=== PATIENT | male | born 1995 | race Caucasian/White ===

== ENCOUNTER 2016-05-21 14:50 | Inpatient (IN) | payer MEDICAID, OTHER ==
[~2016-05-21] VITALS: Ht 177.8 cm; Wt 80.7 kg
[~2016-05-21 14:50] MED LIST: DENIES MEDS
[2016-05-21] MEDS ORDERED: SOD CHLORIDE 0.9% 1,000 ML IV ONE ×3 (15:30→17:30)
[2016-05-21 15:44] LABS: ADD SCAN DIFF NO
[2016-05-21 15:48] LABS: BASOPHIL # 0.1 10^3/ul (0.0-0.1); BASOPHILS % 0.5 % (0.0-2.0); EOSINOPHILS # 0.3 10^3/ul (0.0-0.5); EOSINOPHILS % 2.9 % (0.0-7.0); HEMATOCRIT 37.6 % (42.0-52.0); HEMOGLOBIN 12.3 g/dl (14.0-18.0); LYMPHOCYTES # 1.5 10^3/ul (0.8-2.9); LYMPHOCYTES % 15.6 % (15.0-51.0); MEAN CORPUSCULAR HEMOGLOBIN 29.5 pg (29.0-33.0); MEAN CORPUSCULAR HGB CONC 32.7 g/dl (32.0-37.0); MEAN CORPUSCULAR VOLUME 90.2 fl (82.0-101.0); MEAN PLATELET VOLUME 8.4 fl (7.4-10.4); MONOCYTE # 0.7 10^3/ul (0.3-0.9); MONOCYTES % 7.7 % (0.0-11.0); NEUTROPHIL # 6.9 10^3/ul (1.6-7.5); NEUTROPHILS % 72.9 % (39.0-77.0); PLATELET COUNT 462 10^3/UL (140-415); RED BLOOD COUNT 4.17 10^6/ul (4.70-6.10); RED CELL DISTRIBUTION WIDTH 12.9 % (11.5-14.5); WHITE BLOOD COUNT 9.5 10^3/ul (4.8-10.8)
[2016-05-21 16:03] LABS: ALBUMIN 3.8 g/dl (3.3-4.9)
[2016-05-21 16:04] LABS: POTASSIUM 4.4 mmol/L (3.5-5.1)
[2016-05-21 16:06] LABS: ALBUMIN/GLOBULIN RATIO 0.82; BILIRUBIN,INDIRECT 0.3 mg/dl (0-1.1); BILIRUBIN,TOTAL 0.3 mg/dl (0.2-1.3); CREATININE 0.61 mg/dl (0.61-1.24); TOTAL PROTEIN 8.4 g/dl (6.1-8.1)
[2016-05-21 16:07] LABS: CALCIUM 9.5 mg/dl (8.4-10.2)
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
--- NOTE | 2016-05-21 16:28 | RADRPT ---
PROCEDURE: XR Chest. CLINICAL INDICATION: Sepsis. Fever. TECHNIQUE: Single frontal view. COMPARISON: None. FINDINGS: There is mild atelectasis at the lung bases. Surgical clips and imtiaz are present in the left mid to lower lung zone. The lungs are otherwise clear. The heart size is normal. There is no pleural effusion. There is no pneumothorax. IMPRESSION: 1. Mild atelectasis at the lung bases. 2. Prior left lung surgery. 3. Otherwise normal chest x-ray. RPTAT: QQ .Erick Nieto MD, MD Date Time Electronically viewed and signed by .Erick Nieto MD, MD on 05/21/2016 16:27 .R/
--- NOTE | 2016-05-21 17:02 | RADRPT ---
PROCEDURE: US Lower extremity Venous. CLINICAL INDICATION: Left leg swelling TECHNIQUE: Multiple sonographic images of the left lower extremity deep venous system was obtained utilizing grayscale, color-flow, compressive sonography and doppler imaging with augmentation. The images were reviewed on a PACS workstation. COMPARISON: None. FINDINGS: There is normal compressibility and flow within the left common femoral, superficial femoral, petrophysical engineer ior tibial, peroneal and popliteal veins. RPTAT: AA IMPRESSION: No sonographic evidence for deep venous thrombosis. .León Asencio MD, MD Date Time Electronically viewed and signed by .León Asencio MD, on 05/21/2016 17:01 .S/
[2016-05-21] MEDS ORDERED: CEFTRIAXONE 2 GM INJ IM ONE (17:30)
[2016-05-21] MEDS ORDERED: ACETAMINOPHEN 500 MG TAB PO STA (17:30)
[2016-05-21 17:34] LABS: ADD UMIC YES; URINE BILIRUBIN (Dip) NEGATIVE (NEGATIVE); URINE BLOOD (Dip) 2+ (NEGATIVE); URINE COLOR LT. YELLOW (YELLOW); URINE GLUCOSE (Dip) NEGATIVE (NEGATIVE); URINE KETONES (Dip) NEGATIVE (NEGATIVE); URINE LEUKOCYTE ESTERASE (Dip) 3+ (NEGATIVE); URINE NITRITE (Dip) POSITIVE (NEGATIVE); URINE TOTAL PROTEIN (Dip) 1+ (NEGATIVE); URINE UROBILINOGEN (Dip) 1.0 E.U./dL (0.1-1.0)
[2016-05-21 17:58] LABS: BACTERIA,URINE MODERATE
[2016-05-21] MEDS ORDERED: CEFTRIAXONE 2 GM/50 ML (PMX) 50 ML IVPB ONE (18:00)
--- NOTE | 2016-05-21 18:25 | RADRPT ---
PROCEDURE: AP and lateral views of the left femur. CLINICAL INDICATION: Swelling. TECHNIQUE: AP and cross-table lateral views of the left femur were performed. COMPARISON: No. FINDINGS: There is a soft tissue calcification medial to the mid and distal diaphysis of the left femur. No a cute fractures identified. No joint space effusion is noted. IMPRESSION: 1. Findings suspicious for myositis ossificans. This may be the result of earlier trauma/14 injury . Clinical correlation is needed for confirmation. RPTAT:AAJJ Physician Becky Date Time Electronically viewed and signed by Physician Becky on 05/21/2016 18:25 /
[2016-05-21 19:46] VITALS: TEMP 99.7
[2016-05-21] MEDS ORDERED: ACETAMINOPHEN 325 MG TAB PO PRN (20:00)
[2016-05-21] MEDS ORDERED: ONDANSETRON 4 MG INJ IV PRN (20:00)
[2016-05-21 20:48] LABS: BARBITURATES Negative (NEGATIVE); BENZODIAZEPINES Negative (NEGATIVE); CANNABINOIDS Negative (NEGATIVE); COCAINE Negative (NEGATIVE); OPIATES Negative (NEGATIVE)
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
[2016-05-21 21:20] VITALS: BP 117/68; PULSE 95; RESP 20
[2016-05-21] MEDS ORDERED: ONDANSETRON 4 MG TAB PO PRN (21:30)
[2016-05-21] MEDS ORDERED: NACL 0.9% 3 ML SYG IV SCH (21:30)
[2016-05-21] MEDS ORDERED: METOCLOPRAMIDE 10 MG INJ IV PRN (21:30)
[2016-05-21] MEDS ORDERED: HYDROCODONE/APAP (5/325) TAB PO PRN ×2 (21:30)
[2016-05-21 22:07] VITALS: Ht 177.8 cm; Wt 80.7 kg
[2016-05-21] MEDS: ACETAMINOPHEN 325 MG TAB PO PRN (22:19)
[2016-05-21] MEDS: FAMOTIDINE 20 MG TAB PO SCH (22:19)
[2016-05-22] MEDS ORDERED: ACETAMINOPHEN 500 MG TAB PO ONE (02:33)
[2016-05-22 06:24] LABS: ADD SCAN DIFF NO
[2016-05-22 06:40] LABS: CREATININE 0.74 mg/dl (0.61-1.24)
[2016-05-22 06:41] LABS: CALCIUM 8.8 mg/dl (8.4-10.2)
[2016-05-22 07:21] LABS: BASOPHILS % 0.5 % (0.0-2.0); EOSINOPHILS # 0.1 10^3/ul (0.0-0.5); EOSINOPHILS % 1.2 % (0.0-7.0); HEMATOCRIT 32.1 % (42.0-52.0); HEMOGLOBIN 10.5 g/dl (14.0-18.0); LYMPHOCYTES # 1.7 10^3/ul (0.8-2.9); LYMPHOCYTES % 20.6 % (15.0-51.0); MEAN CORPUSCULAR HEMOGLOBIN 29.1 pg (29.0-33.0); MEAN CORPUSCULAR HGB CONC 32.7 g/dl (32.0-37.0); MEAN CORPUSCULAR VOLUME 88.9 fl (82.0-101.0); MEAN PLATELET VOLUME 8.4 fl (7.4-10.4); MONOCYTE # 0.9 10^3/ul (0.3-0.9); MONOCYTES % 10.5 % (0.0-11.0); NEUTROPHIL # 5.6 10^3/ul (1.6-7.5); NEUTROPHILS % 66.8 % (39.0-77.0); PLATELET COUNT 375 10^3/UL (140-415); RED BLOOD COUNT 3.61 10^6/ul (4.70-6.10); RED CELL DISTRIBUTION WIDTH 12.7 % (11.5-14.5); WHITE BLOOD COUNT 8.4 10^3/ul (4.8-10.8)
[2016-05-22 08:15] VITALS: BP 140/76; RESP 22
[2016-05-22] MEDS: FAMOTIDINE 20 MG TAB PO SCH ×2 (09:36→20:10)
[2016-05-22] MEDS: ENOXAPARIN 40 MG/0.4 ML SYG SC SCH (09:37)
[2016-05-22] MEDS: ACETAMINOPHEN 325 MG TAB PO PRN (09:40)
[2016-05-22] MEDS ORDERED: IBUPROFEN 400 MG TAB PO PRN (12:00)
--- NOTE | 2016-05-22 15:10 | PN ---
Date/Time of Note Date/Time of Note DATE: 05/22/16 TIME: 15:07 Assessment/Plan VTE Prophylaxis VTE Prophylaxis Intervention: SCD's Lines/Catheters IV Catheter Type (from [facility]): [place] [facility] Urinary Cath still in place: No Assessment/Plan Chief Complaint/Hosp Course Assessment/Plan 1) Sepsis, due to UTI with likely culprit being E.coli due to Nitrite POSITIVE on UA Continue Rocephin, IV fluids 2) Urinary tract infection associated with catheterization of urinary tract, unspecified indwelling urinary catheter type, initial encounter Continue IV antibiotics 3) Rhabdomyolysis, indicated by elevated CK without any comparisons, with no recent trauma. Doubtful, but possibility of leftover CK from initial injury, Started patient on IV fluid, follow up CK in a.m. 4) Paraplegia - Up to chair with assist 5) Myositis ossificans - No specific action is needed if the mass is staying the same and it is not painful. May need exploration and excision of the lump, but most llikely, a wait and see approach is likely to be recommended. We will continue monitor patient closely for recommendation management treatment as clinical course Problems: Subjective 24 Hr Interval Summary Free Text/Dictation She complains of having nausea without any vomiting Poor p.o. intake secondary to nausea Complain of having low back pain Exam/Review of Systems Vital Signs Vitals Vital Signs Date Time Temp Pulse Resp B/P Pulse Ox O2 Delivery O2 Flow Rate FiO2 05/22/16 15:07 98.2 05/22/16 08:15 110 22 140/76 95 05/21/16 21:20 Room Air Intake and Output 05/21/16 05/21/16 05/22/16 15:00 23:00 07:00 Intake Total 2000 ml 720 ml Balance 2000 ml 720 ml Exam General: The patient is well-developed, Not in acute distress. HEENT: Atraumatic, normocephalic. The pupils are equal and round . Neck: Supple with full range of motion. Chest: Normal expansion of the thorax during inspiration Lungs: Clear to auscultation bilaterally Heart: Normal S1-S2, Regular rhythm and rate. Abdomen: Soft , nontender, nondistended , bowel sounds are present. Extremities: Lower extremity weakness, no edema no cyanosis Neurologic: Normal mental status,The patient is awake, alert and oriented . Results Result Diagram: 05/22/16 0538 05/22/16 0538 Results 24 hrs Laboratory Tests Test 05/21/16 15:20 05/21/16 17:08 05/22/16 05:38 White Blood Count 9.5 8.4 Red Blood Count 4.17 L 3.61 L Hemoglobin 12.3 L 10.5 L Hematocrit 37.6 L 32.1 L Mean Corpuscular Volume 90.2 88.9 Mean Corpuscular Hemoglobin 29.5 29.1 Mean Corpuscular Hemoglobin Concent 32.7 32.7 Red Cell Distribution Width 12.9 12.7 Platelet Count 462 H 375 Mean Platelet Volume 8.4 8.4 Neutrophils % 72.9 66.8 Lymphocytes % 15.6 20.6 Monocytes % 7.7 10.5 Eosinophils % 2.9 1.2 Basophils % 0.5 0.5 Nucleated Red Blood Cells % 0.0 0.0 Neutrophils # 6.9 5.6 Lymphocytes # 1.5 1.7 Monocytes # 0.7 0.9 Eosinophils # 0.3 0.1 Basophils # 0.1 0.0 Nucleated Red Blood Cells # 0.0 0.0 Sodium Level 140 139 Potassium Level 4.4 4.0 Chloride Level 98 103 Carbon Dioxide Level 29 26 Anion Gap 17 H 14 Blood Urea Nitrogen 18 17 Creatinine 0.61 0.74 Glucose Level 109 99 Lactic Acid Level 2.4 H Calcium Level 9.5 8.8 Total Bilirubin 0.3 Direct Bilirubin 0.00 Indirect Bilirubin 0.3 Aspartate Amino Transf (AST/SGOT) 73 H Alanine Aminotransferase (ALT/SGPT) 24 Alkaline Phosphatase 151 H Creatine Kinase 2532 H 2061 H Creatinine Kinase MB (Mass) 0.44 Total Protein 8.4 H Albumin 3.8 Globulin 4.60 H Albumin/Globulin Ratio 0.82 Urine Color LT. YELLOW Urine Clarity TURBID H Urine pH 6.5 Urine Specific [place] 1.015 Urine Ketones NEGATIVE Urine Nitrite POSITIVE H Urine Bilirubin NEGATIVE Urine Urobilinogen 1.0 E.U./dL Urine Leukocyte Esterase 3+ H Urine Microscopic RBC 2-5 Urine Microscopic WBC >200 Urine Epithelial Cells FEW Urine Bacteria MODERATE Urine Hemoglobin 2+ H Urine Glucose NEGATIVE Urine Total Protein 1+ H Urine Opiates Screen Negative Urine Barbiturates Negative Urine Amphetamines Screen Negative Urine Benzodiazepines Screen Negative Urine Cocaine Screen Negative Urine Cannabinoids Negative Ethyl Alcohol Level < 10.0 Medications Medications Current Medications Ondansetron HCl (Zofran Tab) 4 mg Q6H PRN PO NAUSEA AND/OR VOMITING; Start 05/21 at 21:30 Metoclopramide HCl (Reglan) 10 mg Q6H PRN IV NAUSEA AND/OR VOMITING Last administered on 05/21/16 23:09; Admin Dose 10 MG; Start 05/21/16 at 21:30 Acetaminophen (Tylenol Tab) 650 mg Q6H PRN PO PAIN LEVEL 1-3 OR FEVER Last administered on 05/22/16 09:40; Admin Dose 650 MG; Start 05/21/16 at 21:30 Acetaminophen/ Hydrocodone Bitart ([place] (5/325)) 1 tab Q6H PRN PO MODERATE PAIN LEVEL 4-6; Start 05/21/16 at 21:30 Acetaminophen/ Hydrocodone Bitart ([place] (5/325)) 2 tab Q6H PRN PO SEVERE PAIN LEVEL 7-10; Start 05/21/16 at 21:30 Famotidine (Pepcid) 20 mg Q12 PO Last administered on 05/22/16 09:36; Admin Dose 20 MG; Start 05/21/16 at 21:30 Enoxaparin Sodium 40 mg 40 mg DAILY SC Last administered on 05/22/16 09:37; Admin Dose 40 MG; Start 05/22/16 at 09:00 Ceftriaxone Sodium (Rocephin) 50 ml @ 100 mls/hr Q24H IVPB ; Start 05/22/16 at 18:00 Ibuprofen (Motrin) 400 mg Q6H PRN PO PAIN OR TEMP ABOVE 38C; Start 05/22/16 at 12:00 HAYDE BILLINGSLEY MD May 22, 2016 15:10
[2016-05-22] MEDS: CEFTRIAXONE 2 GM/50 ML (PMX) 50 ML IVPB SCH (17:11)
[2016-05-22] MEDS: SOD CHLORIDE 0.45% 1,000 ML IV SCH (17:11)
[2016-05-22 19:14] VITALS: BP 132/77; RESP 20
[2016-05-22] MEDS: CYCLOBENZAPRINE 10 MG TAB PO SCH (20:10)
[2016-05-23] MEDS: SOD CHLORIDE 0.45% 1,000 ML IV SCH ×4 (01:30→14:17)
[2016-05-23 06:25] LABS: ADD SCAN DIFF NO
[2016-05-23 06:43] LABS: BASOPHIL # 0.1 10^3/ul (0.0-0.1); BASOPHILS % 0.6 % (0.0-2.0); EOSINOPHILS # 0.3 10^3/ul (0.0-0.5); EOSINOPHILS % 3.7 % (0.0-7.0); HEMATOCRIT 32.4 % (42.0-52.0); HEMOGLOBIN 10.7 g/dl (14.0-18.0); LYMPHOCYTES # 1.9 10^3/ul (0.8-2.9); LYMPHOCYTES % 22.1 % (15.0-51.0); MEAN CORPUSCULAR VOLUME 87.8 fl (82.0-101.0); MEAN PLATELET VOLUME 8.6 fl (7.4-10.4); MONOCYTE # 1.1 10^3/ul (0.3-0.9); MONOCYTES % 12.2 % (0.0-11.0); NEUTROPHIL # 5.2 10^3/ul (1.6-7.5); NEUTROPHILS % 60.9 % (39.0-77.0); PLATELET COUNT 340 10^3/UL (140-415); RED BLOOD COUNT 3.69 10^6/ul (4.70-6.10); WHITE BLOOD COUNT 8.6 10^3/ul (4.8-10.8)
[2016-05-23 06:52] LABS: CHLORIDE 102 mmol/L (97-110); POTASSIUM 3.4 mmol/L (3.5-5.1); SODIUM 138 mmol/L (135-144)
[2016-05-23 06:55] LABS: ANION GAP 15 (8-16); BLOOD UREA NITROGEN 17 mg/dl (7-20); CALCIUM 8.6 mg/dl (8.4-10.2); CARBON DIOXIDE 24 mmol/L (21-31); CREATINE KINASE 779 IU/L (23-200); CREATININE 0.53 mg/dl (0.61-1.24); GLUCOSE 100 mg/dl (70-220); MAGNESIUM 1.9 mg/dl (1.7-2.5)
[2016-05-23 07:14] LABS: CK-MB 0.48 ng/ml (0.0-2.4); TROPONIN-I < 0.012 ng/ml (0.00-0.12)
[2016-05-23 07:36] VITALS: BP 113/70; RESP 18
[2016-05-23] MEDS: FAMOTIDINE 20 MG TAB PO SCH ×2 (08:46→22:24)
[2016-05-23] MEDS: CYCLOBENZAPRINE 10 MG TAB PO SCH ×3 (08:46→22:25)
[2016-05-23] MEDS: ENOXAPARIN 40 MG/0.4 ML SYG SC SCH (09:30)
[2016-05-23] MEDS ORDERED: POTASSIUM CHLORIDE (SR) 20 MEQ TAB PO STA (12:42)
--- NOTE | 2016-05-23 12:44 | PN ---
Date/Time of Note Date/Time of Note DATE: 05/23/16 TIME: 12:42 Assessment/Plan VTE Prophylaxis VTE Prophylaxis Intervention: other Lines/Catheters IV Catheter Type (from [facility]): Peripheral IV Urinary Cath still in place: No Assessment/Plan Chief Complaint/Hosp Course Assessment/Plan 1) Sepsis, due to UTI with likely culprit being E.coli due to Nitrite POSITIVE on UA Continue Rocephin, IV fluids 2) Urinary tract infection associated with catheterization of urinary tract, unspecified indwelling urinary catheter type, initial encounter Continue IV antibiotics, negative growth and urine culture 3) Rhabdomyolysis, indicated by elevated CK without any comparisons, with no recent trauma. Doubtful, but possibility of leftover CK from initial injury, Improving, continue IV fluid, follow up CK in a.m. 4) Paraplegia - Up to chair with assist 5) Myositis ossificans - No specific action is needed if the mass is staying the same and it is not painful. May need exploration and excision of the lump, but most llikely, a wait and see approach is likely to be recommended. We will continue monitor patient closely for recommendation management treatment as clinical course Plan to discharge home tomorrow Problems: Subjective 24 Hr Interval Summary Free Text/Dictation Patient denies of any chest pain or shortness of breath Denies any dysuria No nausea vomiting or diarrhea Exam/Review of Systems Vital Signs Vitals Vital Signs Date Time Temp Pulse Resp B/P Pulse Ox O2 Delivery O2 Flow Rate FiO2 05/23/16 07:36 98.3 73 18 113/70 99 05/22/16 20:08 Room Air Intake and Output 05/22/16 05/22/16 05/23/16 15:00 23:00 07:00 Intake Total 770 ml 1170 ml Balance 770 ml 1170 ml Exam General: The patient is well-developed, Not in acute distress. HEENT: Atraumatic, normocephalic. The pupils are equal and round . Neck: Supple with full range of motion. Chest: Normal expansion of the thorax during inspiration Lungs: Clear to auscultation bilaterally Heart: Normal S1-S2, Regular rhythm and rate. Abdomen: Soft , nontender, nondistended , bowel sounds are present. Extremities: Lower extremity are flaccid with decubitus ulcer at the heel left foot, no edema no cyanosis Neurologic: Normal mental status,The patient is awake, alert and oriented . Results Result Diagram: 05/23/16 0544 05/23/16 0544 Results 24 hrs Laboratory Tests Test 05/23/16 05:44 White Blood Count 8.6 Red Blood Count 3.69 L Hemoglobin 10.7 L Hematocrit 32.4 L Mean Corpuscular Volume 87.8 Mean Corpuscular Hemoglobin 29.0 Mean Corpuscular Hemoglobin Concent 33.0 Red Cell Distribution Width 13.0 Platelet Count 340 Mean Platelet Volume 8.6 Neutrophils % 60.9 Lymphocytes % 22.1 Monocytes % 12.2 H Eosinophils % 3.7 Basophils % 0.6 Nucleated Red Blood Cells % 0.0 Neutrophils # 5.2 Lymphocytes # 1.9 Monocytes # 1.1 H Eosinophils # 0.3 Basophils # 0.1 Nucleated Red Blood Cells # 0.0 Sodium Level 138 Potassium Level 3.4 L Chloride Level 102 Carbon Dioxide Level 24 Anion Gap 15 Blood Urea Nitrogen 17 Creatinine 0.53 L Glucose Level 100 Calcium Level 8.6 Magnesium Level 1.9 Creatine Kinase 779 #H Creatine Kinase Index 0.1 Creatinine Kinase MB (Mass) 0.48 Troponin I < 0.012 Medications Medications Current Medications Ondansetron HCl (Zofran Tab) 4 mg Q6H PRN PO NAUSEA AND/OR VOMITING; Start 05/21 at 21:30 Metoclopramide HCl (Reglan) 10 mg Q6H PRN IV NAUSEA AND/OR VOMITING Last administered on 05/21/16 23:09; Admin Dose 10 MG; Start 05/21/16 at 21:30 Acetaminophen (Tylenol Tab) 650 mg Q6H PRN PO PAIN LEVEL 1-3 OR FEVER Last administered on 05/22/16 09:40; Admin Dose 650 MG; Start 05/21/16 at 21:30 Acetaminophen/ Hydrocodone Bitart ([place] (5/325)) 1 tab Q6H PRN PO MODERATE PAIN LEVEL 4-6; Start 05/21/16 at 21:30 Acetaminophen/ Hydrocodone Bitart ([place] (5/325)) 2 tab Q6H PRN PO SEVERE PAIN LEVEL 7-10; Start 05/21/16 at 21:30 Famotidine (Pepcid) 20 mg Q12 PO Last administered on 05/23/16 08:46; Admin Dose 20 MG; Start 05/21/16 at 21:30 Enoxaparin Sodium 40 mg 40 mg DAILY SC Last administered on 05/23/16 09:30; Admin Dose 40 MG; Start 05/22/16 at 09:00 Ceftriaxone Sodium (Rocephin) 50 ml @ 100 mls/hr Q24H IVPB Last administered on 05/22/16 17:11; Admin Dose 100 MLS/HR; Start 05/22/16 at 18:00 Ibuprofen 400 mg 400 mg Q6H PRN PO PAIN OR TEMP ABOVE 38C Last administered on 05/22/16 22:24; Admin Dose 400 MG; Start 05/22/16 at 12:00 Sodium Chloride (1/2 NS) 1,000 ml @ 100 mls/hr Q10H IV Last administered on 03:07; Admin Dose 100 MLS/HR; Start 05/22/16 at 15:30 Cyclobenzaprine HCl (Flexeril) 10 mg TID PO Last administered on 05/23/16 08:46 ; Admin Dose 10 MG; Start 05/22/16 at 21:00 HAYDE BILLINGSLEY MD May 23, 2016 12:44
[2016-05-23] MEDS: CEFTRIAXONE 2 GM/50 ML (PMX) 50 ML IVPB SCH (17:05)
[2016-05-23 20:00] VITALS: BP 120/68; RESP 18
[2016-05-24] MEDS: SOD CHLORIDE 0.45% 1,000 ML IV SCH ×2 (02:20→12:39)
[2016-05-24 07:31] VITALS: BP 115/73; RESP 18
[2016-05-24] MEDS: CYCLOBENZAPRINE 10 MG TAB PO SCH ×2 (09:12→12:39)
[2016-05-24] MEDS: FAMOTIDINE 20 MG TAB PO SCH (09:12)
[2016-05-24] MEDS: ENOXAPARIN 40 MG/0.4 ML SYG SC SCH (09:25)
[2016-05-24 11:28] LABS: ADD SCAN DIFF NO
[2016-05-24 11:34] LABS: BASOPHILS % 0.6 % (0.0-2.0); EOSINOPHILS # 0.2 10^3/ul (0.0-0.5); EOSINOPHILS % 3.1 % (0.0-7.0); HEMATOCRIT 33.6 % (42.0-52.0); HEMOGLOBIN 11.2 g/dl (14.0-18.0); LYMPHOCYTES # 1.6 10^3/ul (0.8-2.9); LYMPHOCYTES % 22.3 % (15.0-51.0); MEAN CORPUSCULAR HEMOGLOBIN 29.7 pg (29.0-33.0); MEAN CORPUSCULAR HGB CONC 33.3 g/dl (32.0-37.0); MEAN CORPUSCULAR VOLUME 89.1 fl (82.0-101.0); MEAN PLATELET VOLUME 8.1 fl (7.4-10.4); MONOCYTE # 0.8 10^3/ul (0.3-0.9); MONOCYTES % 11.6 % (0.0-11.0); NEUTROPHIL # 4.5 10^3/ul (1.6-7.5); NEUTROPHILS % 62.3 % (39.0-77.0); PLATELET COUNT 358 10^3/UL (140-415); RED BLOOD COUNT 3.77 10^6/ul (4.70-6.10); RED CELL DISTRIBUTION WIDTH 13.1 % (11.5-14.5); WHITE BLOOD COUNT 7.1 10^3/ul (4.8-10.8)
[2016-05-24 11:44] LABS: CHLORIDE 105 mmol/L (97-110); POTASSIUM 3.7 mmol/L (3.5-5.1); SODIUM 140 mmol/L (135-144)
[2016-05-24 11:46] LABS: CREATININE 0.69 mg/dl (0.61-1.24)
[2016-05-24 11:47] LABS: ANION GAP 15 (8-16); BLOOD UREA NITROGEN 17 mg/dl (7-20); CARBON DIOXIDE 24 mmol/L (21-31); CREATINE KINASE 363 IU/L (23-200); GLUCOSE 143 mg/dl (70-220)
[2016-05-24 11:48] LABS: CALCIUM 8.8 mg/dl (8.4-10.2)
[2016-05-24 11:57] LABS: CK-MB < 0.22 ng/ml (0.0-2.4)
[2016-05-24 12:06] LABS: TROPONIN-I < 0.012 ng/ml (0.00-0.12)
--- NOTE | 2016-05-24 15:18 | PDOCDIS ---
Discharge Instructions CONDITION Patient Condition: Good HOME CARE INSTRUCTIONS: Special Diet: REGULAR, increase fluid intake ACTIVITY: Activity Restrictions: No Restrictions HAYDE BILLINGSLEY MD May 24, 2016 15:18
[2016-05-24] MEDS ORDERED: PHEN-537 PO (15:21)
[2016-05-24] MEDS ORDERED: CIPR500T4 PO (15:21)
[2016-05-24] MEDS ORDERED: ONDA-43 PO (15:21)
[2016-05-24] MEDS ORDERED: FAMO20TA18 PO (15:21)
[2016-05-24 18:00] VITALS: BP 113/72; PULSE 73; RESP 17
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
== END 2016-05-24 18:45 | disposition home or self-care (01) | DRG 698 ==
LOC: E/R 14:50 → MS2 19:57 → OBSVTOIN 05-22 06:51
PROVIDERS: ADMIT Family Medicine; ATTEND Family Medicine
DX: T83.518A Infection and inflammatory reaction due to other urinary catheter, initial encounter (principal); A41.51 Sepsis due to Escherichia coli [E. coli]; S22.089A Unspecified fracture of T11-T12 vertebra, initial encounter for closed fracture; N39.0 Urinary tract infection, site not specified; M62.82 Rhabdomyolysis; G82.20 Paraplegia, unspecified; W34.00XA Accidental discharge from unspecified firearms or gun, initial encounter; M61.9 Calcification and ossification of muscle, unspecified
CPT/HCPCS: 36415; 71010; 73550; 80048; 80053; 80306; 80307; 81001; 81003; 82550; 82553; 83605; 83735; 84484; 85025; 87040; 87070; 87081; 87086; 93005; 93971; 96361; 96374; G0378; J1650; J2765; J7030